=== PATIENT | male | born 1950 | race Caucasian/White ===

== ENCOUNTER 2017-01-30 08:44 | Day surgery (SDC) | payer MEDICARE, OTHER ==
[2017-01-27 10:55] LABS: BASOPHILS 0.4 %; BASOPHILS ABSOLUTE 0.02 10/3/uL (0.0-0.16); EOSINOPHILS 2.6 %; EOSINOPHILS ABSOLUTE 0.13 10/3/uL (0.0-0.53); HEMATOCRIT 36.8 % (40.0-51.0); HEMOGLOBIN 13.3 g/dL (13.6-17.8); IMMATURE GRANULOCYTES 0.2 %; IMMATURE GRANULOCYTES ABSOLUTE 0.01 10/3/uL (0.0-0.11); LYMPHOCYTES 22.1 %; LYMPHOCYTES ABSOLUTE 1.09 10/3/uL (0.67-4.30); MEAN CORPUS HGB CONC 36.1 g/dL (32.0-36.0); MEAN CORPUSCULAR HEMOGLOB 32.1 pg (26.0-34.0); MEAN CORPUSCULAR VOLUME 88.9 fL (80-100); MEAN PLATELET VOLUME 10.3 fL (9.2-13.0); MONOCYTES 8.9 %; MONOCYTES ABSOLUTE 0.44 10/3/uL (0.21-1.20); NEUTROPHILS 65.8 %; NEUTROPHILS ABSOLUTE 3.24 10/3/uL (2.02-8.40); PLATELET COUNT 54 10/3/uL (150-400); RBC DISTRIBUTION WIDTH 12.9 % (12.0-16.0); RED CELL COUNT 4.14 10/6/uL (4.7-6.1); WHITE BLOOD CELLS 4.9 10/3/uL (4.5-10.5)
[2017-01-27 10:56] LABS: MANUAL DIFF NO %
[2017-01-27 11:56] LABS: PLATELET ESTIMATE ADQ (ADEQUATE); RBC MORPHOLOGY NORM (NORMAL)
--- NOTE | ~2017-01-30 | OP ---
Record Of Operation [facility] [address] [place]. [address] NAME: ARON MEDEIROS : 50 STATUS : [facility]#: [id number] AGE: 66 ADM/REG DATE : 01/30/17 MR#: [id number] REPORT SERV DATE: 01/30/17 DICTATED BY: MARELY LEYVA DATE: 01/30/17 REPORT STATUS : Draft TRANSCRIBED BY: MODBoubacar DATE: 01/30/17 DATE OF PROCEDURE: 01/30/2017 SERVICE: Otolaryngology. PREOPERATIVE DIAGNOSIS: Hoarseness with laryngeal mass. 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 ANESTHESIA: General endotracheal anesthesia. COMPLICATIONS: None. SPECIMENS: Left laryngeal mass for frozen and permanent. FINDINGS: The patient had an exophytic laryngeal mass completely encasing the left true vocal cord crossing over the anterior commissure and involving the subglottis down to near the level of the cricoid cartilage. I also superiorly advanced disease up over the left arytenoid. ESTIMATED BLOOD LOSS: Minimal. STATEMENT OF MEDICAL NECESSITY: This is a 66-year-old male smoker who presents with weight loss and hoarseness on examination in my clinic with fiberoptic scope. He had an exophytic mass on the larynx. Today's procedure was designed for diagnosis staging purposes. STATEMENT OF OPERATION: The patient was brought to the operating room in supine position, transferred over to the operating table. After pressure points were padded and general endotracheal anesthesia was established with a 6.0 tube, the patient was draped out for the procedure. A Dedo laryngoscope was inserted and the patient was suspended with full view of the larynx. A 0 degree telescope was then used to evaluate the disease and the disease extended well past the left true vocal cord down into the subglottis across the midline at the anterior commissure. It was very exophytic and also advanced superiorly to the anterior border of the left arytenoid and some of the interarytenoid space. Once I was able to get a handle on the extent of the disease, biopsies were taken directly from the mass, sent for frozen section. Diagnosis was consistent with squamous cell carcinoma of the larynx. At this point, I used epinephrine-soaked pledgets for hemostasis. The McIvor mouth gag was then removed. The patient awoke and was extubated, and transferred to the PACU in stable condition. PS/MODL Marely Leyva MD Record Of Operation [facility] [address] [place]. [address] NAME: ARON MEDEIROS : 50 STATUS : [facility] PAT#: [id number] AGE: 66 ADM/REG DATE : 01/30/17 MR#: [id number] REPORT SERV DATE: 01/30/17 DICTATED BY: MARLEY LEYVA DATE: 01/30/17 REPORT STATUS : Draft TRANSCRIBED BY: MODL DATE: 01/30/17 / [id number] CC: MD Dayday Montes M.D.
[~2017-01-30 08:44] MED LIST: ANOROELLIPTA INH; ASAB PO; BETAPACE80 PO; BRILINTA90 MG PO; COREG12 PO; COREG3 PO; COREG6 PO; COZ25 PO; COZ50 PO; COZAAR100 MG PO; CYMBALTA60 PO; FORTAMET500 MG PO; GLUCOTRO10 PO; GLUCOV2.5 PO; HUMALOG SC; KLOR-CON M2020 MEQ PO; L40 PO; LEVEMIR SC; NOVOPEN SC; NYS500UDL PO; PRAVACHOL40 MG PO; PRILOSEC40 MG PO; SPIRO25 PO; SUCR PO; VENTOLIN HFA INH; XARELTO20 MG PO
[2017-01-30 09:20] LABS: BUN (BLOOD UREA NITROGEN) 8 MG/DL (6-23); CALCIUM, SERUM 8.5 MG/DL (8.5-10.4); CHLORIDE, SERUM 105 MMOL/L (96-112); CO2 (CARBON DIOXIDE) 27 MMOL/L (24-34); CREATININE 0.82 MG/DL (0.70-1.30); GFR AFRICAN AMERICAN 107 ML/MIN (>=60); GFR NON AFRICAN AMERICAN 92 ML/MIN (>=60); SODIUM, SERUM 138 MMOL/L (135-148)
[2017-01-30 09:23] LABS: GLUCOSE, SERUM 263 MG/DL (60-99)
== END 2017-01-30 13:22 | disposition home or self-care (01) ==
LOC: SDC 08:44
PROVIDERS: Otolaryngology
PROC: 0CBS8ZX Excision of Larynx, Via Natural or Artificial Opening Endoscopic, Diagnostic (ICD-10-PCS; principal; 2017-01-30 11:15)
DX: C32.9 Malignant neoplasm of larynx, unspecified (principal); I48.0 Paroxysmal atrial fibrillation; I42.8 Other cardiomyopathies; R07.9 Chest pain, unspecified; E66.9 Obesity, unspecified; I25.10 Atherosclerotic heart disease of native coronary artery without angina pectoris; I50.21 Acute systolic (congestive) heart failure; R06.00 Dyspnea, unspecified; E11.9 Type 2 diabetes mellitus without complications; E78.00 Pure hypercholesterolemia, unspecified; I13.0 Hypertensive heart and chronic kidney disease with heart failure and stage 1 through stage 4 chronic kidney disease, or unspecified chronic kidney disease; Z79.01 Long term (current) use of anticoagulants
CPT/HCPCS: 74420; 80048; 82962; 85025; 88305; 88331; 88342; A9270-GY; J2250; J2405; J2710; J3010